=== PATIENT | female | born 1980 | race Caucasian/White ===

== ENCOUNTER 2023-07-16 10:45 | Outpatient (OUT) | payer OTHER, SELFPAY ==
--- NOTE | 2023-07-16 10:48 | US_ITS ---
[address] [address] Patient Name: GAUTAM WATT MRN: [id number] date: 1980 Sex: F Assigned Patient Location: US Current Patient Location: US Accession/Order Number: [id number] Exam Date: 07/16/2023 10:50 Report Date: 07/16/2023 12:17 At the request of: BRIGIDA JIMENEZ Procedure: US pelvis w/ transvaginal EXAMINATION: US pelvis w/ transvaginal HISTORY: Abnormal Uterine Bleeding N93.9, Hormone Imbalance E34.9 , amenorrhea for 6 months COMPARISON: No relevant comparison available. TECHNIQUE: Transabdominal and/or transvaginal sonographic examination was performed as indicated by examination type. FINDINGS: UTERUS: Normal size and appearance. Uterus size: 6.9 x 4.0 x 4.8 cm ENDOMETRIUM: Slightly thickened and contains a few tiny echogenic foci, likely small dystrophic calcifications. Endometrial thickness: 15 mm RIGHT OVARY: Normal size and appearance. Duplex Doppler demonstrates normal waveform and flow; resistive index 0.7. Ovary size: 2.7 x 1.0 x 0.9 LEFT OVARY: Contains several cysts/follicles, largest is 2.3 cm. Duplex Doppler demonstrates normal waveform and flow; resistive index 0.6. Ovary size: 5.0 x 2.2 x 3.2 cm CUL-DE-SAC: Unremarkable. No significant free fluid. BLADDER: Unremarkable. OTHER: None. US/US pelvis w/ transvaginal IMPRESSION: 1. Borderline thickened endometrium containing several calcifications, likely dystrophic calcifications; nonspecific. Appearance suggestive of endometrial hyperplasia. 2. Several cysts/follicles within left ovary; no suspicious findings. Electronically authenticated by: REYES RAMAN Date: 07/16/2023 12:17
[2023-07-16 11:38] LABS: Basophils Absolute Auto 0.1 10^3/uL (0.0-0.1); Basophils Percent Auto 0.7 % (0.2-2.0); Eosinophils Absolute Auto 0.1 10^3/uL (0.0-0.7); Eosinophils Percent Auto 1.9 % (0.9-7.0); Hematocrit 44.4 % (36.0-48.0); Hemoglobin 15.2 g/dL (12.0-16.0); Immature Granulocytes Abs Auto 0.03 10^3/uL (0.00-0.03); Immature Granulocytes Pct Auto 0.4 % (0.0-0.5); Lymphocytes Absolute Auto 2.3 10^3/uL (1.2-3.8); Lymphocytes Percent Auto 31.1 % (20.5-60.0); Mean Corpuscular HGB Conc 34.2 g/dL (29.9-35.2); Mean Corpuscular Hemoglobin 31.5 pg (26.7-34.0); Mean Corpuscular Volume 91.9 fL (81.0-99.0); Mean Platelet Volume 8.3 fL (9.5-13.5); Monocytes Absolute Auto 0.5 10^3/uL (0.3-0.8); Monocytes Percent Auto 6.5 % (1.7-12.0); Neutrophils Absolute Auto 4.4 10^3/uL (1.4-6.5); Neutrophils Percent Auto 59.4 % (43.0-75.0); Platelet Count 284 10^3/uL (150-450); Red Blood Count 4.83 10^6/uL (4.20-5.40); White Blood Count 7.4 10^3/uL (4.0-11.0)
[2023-07-16 11:45] LABS: Estimated Average Glucose 103 mg/dL; Glycohemoglobin A1C 5.2 % (4.5-6.2)
[2023-07-16 12:10] LABS: Alanine Aminotransferase 50 U/L (14-59); Albumin Globulin Ratio 0.9; Albumin Level 3.7 g/dL (3.4-5.0); Alkaline Phosphatase 74 U/L (46-116); Anion Gap 14.3; Aspartate Amino Transferase 16 U/L (15-37); BUN Creatinine Ratio 22.8; Bilirubin Total 0.5 mg/dL (0.2-1.0); Calcium 9.4 mg/dL (8.5-10.1); Carbon Dioxide 26.9 mmol/L (21.0-32.0); Chloride 101 mmol/L (98-107); Estimated GFR (African America >60 (>=60); Estimated GFR (Non-African Ame >60 (>=60); Globulin 3.9 g/dL; Glucose 79 mg/dL (74-106); HCG Quantitative <1 mIU/mL; Potassium 4.2 mmol/L (3.5-5.1); Sodium 138 mmol/L (136-145); Thyroid Stimulating Hormone 1.122 uIU/mL (0.358-3.740); Total Protein 7.6 g/dL (6.4-8.2)
[2023-07-17 09:11] LABS: Luteinizing Hormone(LH) 7.2 mIU/mL (.); Prolactin 10.9 ng/mL (4.8-23.3)
== END 2023-07-16 10:46 | disposition home or self-care (01) ==
LOC: US 10:46
PROVIDERS: PCP Obstetrics & Gynecology; Visit Provider Obstetrics & Gynecology
DX: N95.1 Menopausal and female climacteric states (principal); R23.2 Flushing; E34.9 Endocrine disorder, unspecified; N93.9 Abnormal uterine and vaginal bleeding, unspecified; N83.202 Unspecified ovarian cyst, left side
CPT/HCPCS: 36415; 76830; 76856; 80053; 82627; 83002; 83036; 84146; 84439; 84443; 84702; 85025

== ENCOUNTER 2023-07-18 17:33 | Emergency (ER) | payer OTHER, SELFPAY ==
[2023-07-18 17:37] VITALS: BP 153/100; PULSE 90; RESP 14; TEMP 36.8; O2SAT 99; BMI 29.7
[2023-07-18 17:42] VITALS: BP 150/100
[2023-07-18 17:44] VITALS: O2SAT 99
--- NOTE | 2023-07-18 18:01 | ED.GENADUL1 ---
Documented by User: FRANHCESKA Zelaya 07/18/23 19:06 HPI - General Adult General Chief complaint: Ear Stated complaint: Earache Time Seen by Provider: 07/18/23 17:37 Source: patient Mode of arrival: walk-in History of Present Illness HPI narrative: patient is a 43-year-old female presents to the Emergency Room with concerns of left-sided ear pain. Patient states she has had symptoms on and off for two years. Pain started on Friday, can be sharp ice pick like in front of her left ear. She denies diffiiculty hearing or dizziness denies pain with movement of her ear. Patient states she saw an ENT in the past and was told that she grinds her teeth and did not follow up again. Patient takes Motrin with some relief. She denies any visual disturbance. Patient notes att times the pain will radiate into her maxilla and frontal region. She denies any pain with chewing. Patient currently without any nausea or vomiting. Denies visual disturbance or loss of vision Location: Reports face (left ear) Radiation: Denies non-radiation Severity: mild Quality: Reports aching, sharp, dull and constant; Denies burning Pain Consistency: Reports constant Exacerbating factors: Reports none Associated symptoms: Reports denies other symptoms and headaches; Denies confusion, cough, nausea/vomiting or weakness Treatments prior to arrival: Reports NSAID Related Data Home Medications Medication Instructions Recorded Confirmed bupropion HCl 300 mg 24 hr tablet, 300 mg PO DAILY 07/18/23 07/18/23 extended release metformin 500 mg tablet,extended 500 mg PO BID 07/18/23 07/18/23 release 24 hr metoprolol tartrate 25 mg tablet 25 mg PO BID 07/18/23 07/18/23 Allergies Allergy/AdvReac Type Severity Reaction Status Date / Time No Known Drug Allergies Allergy Verified 07/18/23 17:41 Review of Systems ROS Constitutional Denies: fever or chills Eyes Denies: change in vision or blurry vision Ears, nose, mouth, and throat Reports: ear pain (left); Denies: throat pain, neck pain or nasal congestion Cardiovascular Denies: chest pain or palpitations Respiratory Denies: shortness of breath, cough or wheezing Gastrointestinal Denies: abdominal pain or excessive passing of gas Musculoskeletal Denies: back pain or neck pain Integumentary/Breast Denies: rash, itching or redness Neurological Reports: headache; Denies: numbness in extremities, weakness in extremities, lack of coordination or dizziness Psychiatric Denies: anxiety Allergic/Immunologic Denies: hives or facial swelling Exam Narrative Exam Narrative: Vital signs and nurses notes reviewed. The patient is not hypoxic. General: The patient appears well and in no apparent distress. Patient is resting comfortably on cart. Skin: Warm, dry, no pallor noted. The patient has no evidence of rash, petechiae, or purpura noted. Head: Normocephalic, atraumatic, no temporal arterial tenderness, no tenderness to temporomandibular joint, patient has pain preauricular with a slight Tinel's to the facial nerve. Neck: Supple, trachea mid-line, no tenderness, no lymphadenopathy. No meningeal signs. No nuchal rigidity. Eye: Pupils are equal, round and reactive to light, EOMI Ears, Nose, Mouth, and Throat: Oral mucosa is moist, TMs are clear bilaterally, no hemotympanum noted. no auricle or tragal tenderness. Cardiovascular: Regular Rate and Rhythm Respiratory: Patient is in no distress, no accessory muscle use, lungs are clear to auscultation, no wheezing, rales or rhonchi Back: non-tender, no CVA tenderness Musculoskeletal: normal ROM, no tenderness, no swelling, normal strength 5/5. Normal pulses to radial 2+ bilaterally and 2+ at DP and PT bilaterally and symmetrically. GI: Normal bowel sounds, no tenderness to palpation, no masses appreciated. No rebound, guarding, or rigidity noted. 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 The patient is not ataxic. The patient has normal speech. The patient has normal coordination. . Normal motor and sensory observed. Psychiatric: Cooperative Constitutional Vital Signs, click to edit/add: Last Vital Signs Temp 98.3 F 07/18/23 17:37 Pulse 90 07/18/23 17:37 Resp 14 07/18/23 17:37 BP 150/100 H 07/18/23 17:42 Pulse Ox 99 07/18/23 17:44 O2 Del Method Nasal Cannula 07/18/23 18:01 Course Vital Signs Vital signs: Vital Signs Temperature 98.3 F 07/18/23 17:37 Pulse Rate 90 07/18/23 17:37 Respiratory Rate 14 07/18/23 17:37 Blood Pressure 153/100 H 07/18/23 17:37 Pulse Oximetry 99 07/18/23 17:37 Oxygen Delivery Method Room Air 07/18/23 17:37 Temperature 98.3 F 07/18/23 17:37 Pulse Rate 90 07/18/23 17:37 Respiratory Rate 14 07/18/23 17:37 Blood Pressure 150/100 H 07/18/23 17:42 Pulse Oximetry 99 07/18/23 17:44 Oxygen Delivery Method Nasal Cannula 07/18/23 18:01 Medical Decision Making MDM Narrative Medical decision making narrative: patient with complaint of left ear pain, there is no ear tenderness or dental tenderness on exam. Pain with slight Tinel's to the facial nerve, but history concerning for possible cluster migraines. Patient placed on high flow oxygen 15 L/m. patient was given Toradol 30 mg IV, Solu-Medrol 125 mg IV, reevaluated. She reports no significant change in symptoms pain preauricular still 02/15. Patient states she has dealt with this for many years, we discussed additional medications but she would need to have a ride home. We discussed potential etiologies such as trigeminal neuralgia or cluster migraines and suggests possibly trying treatment for these with her family doctor, and consultation back to ENT specialist if not improving. Patient agreeable with disposition home and will return to the Emergency Room if symptoms worsen or new symptoms develop. do not feel the patient's symptoms warrant any CT imaging at this time. The patient is to followup with primary care physician in next 2-3 days or to return to the emergency department should any of the signs or symptoms worsen or new symptoms develop. Patient had questions answered. The patient agrees with the following Diagnosis and Treatment plan and the patient will be discharged home. Lab Data Labs: Lab Results 07/18/23 Range/Units 18:20 WBC 8.7 (4.0-11.0) 10^3/uL RBC 4.73 (4.20-5.40) 10^6/uL Hgb 14.9 (12.0-16.0) g/dL Hct 43.6 (36.0-48.0) % MCV 92.2 (81.0-99.0) fL MCH 31.5 (26.7-34.0) pg MCHC 34.2 (29.9-35.2) g/dL RDW 12.9 (11.0-15.0) % Plt Count 268 (150-450) 10^3/uL MPV 8.7 L (9.5-13.5) fL Neut % (Auto) 65.9 (43.0-75.0) % Lymph % (Auto) 26.1 (20.5-60.0) % Burnett % (Auto) 5.9 (1.7-12.0) % Eos % (Auto) 1.3 (0.9-7.0) % Baso % (Auto) 0.5 (0.2-2.0) % Neut # (Auto) 5.8 (1.4-6.5) 10^3/uL Lymph # (Auto) 2.3 (1.2-3.8) 10^3/uL Burnett # (Auto) 0.5 (0.3-0.8) 10^3/uL Eos # (Auto) 0.1 (0.0-0.7) 10^3/uL Baso # (Auto) 0.0 (0.0-0.1) 10^3/uL Abs Immat Gran (auto) 0.03 (0.00-0.03) 10^3/uL Imm/Tot Granulo (auto) 0.3 (0.0-0.5) % ESR 15 (<=20) mm/hr Sodium 136 (136-145) mmol/L Potassium 4.3 (3.5-5.1) mmol/L Chloride 103 (98-107) mmol/L Carbon Dioxide 28.4 (21.0-32.0) mmol/L Anion Gap 8.9 BUN 22.0 H (7.0-18.0) mg/dL Creatinine 0.89 (0.55-1.02) mg/dL Est GFR ( Amer) >60 (>=60) Est GFR (Non-Af Amer) >60 (>=60) BUN/Creatinine Ratio 24.7 Glucose 103 (74-106) mg/dL Calcium 9.3 (8.5-10.1) mg/dL Discharge Plan Discharge Chief Complaint: Ear Clinical Impression: Acute facial pain, Otalgia of left ear Patient Disposition: Home, Self-Care Time of Disposition Decision: 19:05 Condition: Good Prescriptions / Home Meds: No Action metformin 500 mg tablet extended release 24 hr 500 mg PO BID bupropion HCl 300 mg tablet extended release 24 hr 300 mg PO DAILY metoprolol tartrate 25 mg tablet 25 mg PO BID Instructions: Trigeminal Neuralgia (ED) Stand Alone Forms: Portal Instructions Referrals: Phil Nino MD [Primary Care Provider] - As soon as possible Discharge Date/Time: 07/18/23 19:40 Documented by User: Delvin Lamb MD 07/21/23 22:34 HPI - General Adult General Chief complaint: Ear Stated complaint: Earache Time Seen by Provider: 07/18/23 17:37 Related Data Home Medications Medication Instructions Recorded Confirmed bupropion HCl 300 mg 24 hr tablet, 300 mg PO DAILY 07/18/23 07/18/23 extended release metformin 500 mg tablet,extended 500 mg PO BID 07/18/23 07/18/23 release 24 hr metoprolol tartrate 25 mg tablet 25 mg PO BID 07/18/23 07/18/23 Allergies Allergy/AdvReac Type Severity Reaction Status Date / Time No Known Drug Allergies Allergy Verified 07/18/23 17:41 Exam Constitutional Vital Signs, click to edit/add: Last Vital Signs Temp 98.3 F 07/18/23 17:37 Pulse 90 07/18/23 17:37 Resp 14 07/18/23 17:37 BP 150/100 H 07/18/23 17:42 Pulse Ox 99 07/18/23 17:44 O2 Del Method Nasal Cannula 07/18/23 18:01 Course Vital Signs Vital signs: Vital Signs Temperature 98.3 F 07/18/23 17:37 Pulse Rate 90 07/18/23 17:37 Respiratory Rate 14 07/18/23 17:37 Blood Pressure 153/100 H 07/18/23 17:37 Pulse Oximetry 99 07/18/23 17:37 Oxygen Delivery Method Room Air 07/18/23 17:37 Temperature 98.3 F 11/10/23 17:37 Pulse Rate 90 07/18/23 17:37 Respiratory Rate 14 07/18/23 17:37 Blood Pressure 150/100 H 07/18/23 17:42 Pulse Oximetry 99 07/18/23 17:44 Oxygen Delivery Method Nasal Cannula 07/18/23 18:01 Medical Decision Making MDM Narrative Medical decision making narrative: patient with complaint of left ear pain, there is no ear tenderness or dental tenderness on exam. Pain with slight Tinel's to the facial nerve, but history concerning for possible cluster migraines. Patient placed on high flow oxygen 15 L/m. patient was given Toradol 30 mg IV, Solu-Medrol 125 mg IV, reevaluated. She reports no significant change in symptoms pain preauricular still 02/15. Patient states she has dealt with this for many years, we discussed additional medications but she would need to have a ride home. We discussed potential etiologies such as trigeminal neuralgia or cluster migraines and suggests possibly trying treatment for these with her family doctor, and consultation back to ENT specialist if not improving. Patient agreeable with disposition home and will return to the Emergency Room if symptoms worsen or new symptoms develop. do not feel the patient's symptoms warrant any CT imaging at this time. The patient is to followup with primary care physician in next 2-3 days or to return to the emergency department should any of the signs or symptoms worsen or new symptoms develop. Patient had questions answered. The patient agrees with the following Diagnosis and Treatment plan and the patient will be discharged home. I, Dr Lamb, have reviewed the above progress note and course of action in the ER; agree with the above. I have gone over history and physical, and discussed disposition and treatment plan with the patient. Lab Data Labs: Lab Results 07/18/23 Range/Units 18:20 WBC 8.7 (4.0-11.0) 10^3/uL RBC 4.73 (4.20-5.40) 10^6/uL Hgb 14.9 (12.0-16.0) g/dL Hct 43.6 (36.0-48.0) % MCV 92.2 (81.0-99.0) fL MCH 31.5 (26.7-34.0) pg MCHC 34.2 (29.9-35.2) g/dL RDW 12.9 (11.0-15.0) % Plt Count 268 (150-450) 10^3/uL MPV 8.7 L (9.5-13.5) fL Neut % (Auto) 65.9 (43.0-75.0) % Lymph % (Auto) 26.1 (20.5-60.0) % Burnett % (Auto) 5.9 (1.7-12.0) % Eos % (Auto) 1.3 (0.9-7.0) % Baso % (Auto) 0.5 (0.2-2.0) % Neut # (Auto) 5.8 (1.4-6.5) 10^3/uL Lymph # (Auto) 2.3 (1.2-3.8) 10^3/uL Burnett # (Auto) 0.5 (0.3-0.8) 10^3/uL Eos # (Auto) 0.1 (0.0-0.7) 10^3/uL Baso # (Auto) 0.0 (0.0-0.1) 10^3/uL Abs Immat Gran (auto) 0.03 (0.00-0.03) 10^3/uL Imm/Tot Granulo (auto) 0.3 (0.0-0.5) % ESR 15 (<=20) mm/hr Sodium 136 (136-145) mmol/L Potassium 4.3 (3.5-5.1) mmol/L Chloride 103 (98-107) mmol/L Carbon Dioxide 28.4 (21.0-32.0) mmol/L Anion Gap 8.9 BUN 22.0 H (7.0-18.0) mg/dL Creatinine 0.89 (0.55-1.02) mg/dL Est GFR ( Amer) >60 (>=60) Est GFR (Non-Af Amer) >60 (>=60) BUN/Creatinine Ratio 24.7 Glucose 103 (74-106) mg/dL Calcium 9.3 (8.5-10.1) mg/dL Discharge Plan Discharge Chief Complaint: Ear Clinical Impression: Acute facial pain, Otalgia of left ear Patient Disposition: Home, Self-Care Time of Disposition Decision: 19:05 Condition: Good Prescriptions / Home Meds: No Action metformin 500 mg tablet extended release 24 hr 500 mg PO BID bupropion HCl 300 mg tablet extended release 24 hr 300 mg PO DAILY metoprolol tartrate 25 mg tablet 25 mg PO BID Instructions: Trigeminal Neuralgia (ED) Stand Alone Forms: Portal Instructions Referrals: Phil Nino MD [Primary Care Provider] - As soon as possible Discharge Date/Time: 07/18/23 19:40
[2023-07-18] MEDS: 0.9 % SODIUM CHLORIDE 1,000 ML 999 ML IV (18:27)
[2023-07-18] MEDS: METHYLPREDNISOLONE SOD SUCC PF 125 MG/2 ML VIAL IVP (18:27)
[2023-07-18] MEDS: KETOROLAC TROMETHAMINE 60 MG/2 ML VIAL IM (18:27)
[2023-07-18 18:32] LABS: Basophils Percent Auto 0.5 % (0.2-2.0); Eosinophils Absolute Auto 0.1 10^3/uL (0.0-0.7); Eosinophils Percent Auto 1.3 % (0.9-7.0); Hematocrit 43.6 % (36.0-48.0); Hemoglobin 14.9 g/dL (12.0-16.0); Immature Granulocytes Abs Auto 0.03 10^3/uL (0.00-0.03); Immature Granulocytes Pct Auto 0.3 % (0.0-0.5); Lymphocytes Absolute Auto 2.3 10^3/uL (1.2-3.8); Lymphocytes Percent Auto 26.1 % (20.5-60.0); Mean Corpuscular HGB Conc 34.2 g/dL (29.9-35.2); Mean Corpuscular Hemoglobin 31.5 pg (26.7-34.0); Mean Corpuscular Volume 92.2 fL (81.0-99.0); Mean Platelet Volume 8.7 fL (9.5-13.5); Monocytes Absolute Auto 0.5 10^3/uL (0.3-0.8); Monocytes Percent Auto 5.9 % (1.7-12.0); Neutrophils Absolute Auto 5.8 10^3/uL (1.4-6.5); Neutrophils Percent Auto 65.9 % (43.0-75.0); Platelet Count 268 10^3/uL (150-450); Red Blood Count 4.73 10^6/uL (4.20-5.40); Red Cell Distribution Width 12.9 % (11.0-15.0); White Blood Count 8.7 10^3/uL (4.0-11.0)
[2023-07-18 18:36] LABS: Anion Gap 8.9; BUN Creatinine Ratio 24.7; Calcium 9.3 mg/dL (8.5-10.1); Carbon Dioxide 28.4 mmol/L (21.0-32.0); Chloride 103 mmol/L (98-107); Estimated GFR (African America >60 (>=60); Estimated GFR (Non-African Ame >60 (>=60); Glucose 103 mg/dL (74-106); Potassium 4.3 mmol/L (3.5-5.1); Sodium 136 mmol/L (136-145)
[2023-07-18 18:37] LABS: Erythrocyte Sedimentation Rate 15 mm/hr (<=20)
== END 2023-07-18 19:40 | disposition home or self-care (01) ==
PROVIDERS: Personal Emergency Response Attendant; Emergency Provider Emergency Medicine; PCP Family Medicine
DX: H92.02 Otalgia, left ear (principal); G50.1 Atypical facial pain; Z79.899 Other long term (current) drug therapy; Z79.84 Long term (current) use of oral hypoglycemic drugs
CPT/HCPCS: 36415; 80048; 85025; 85652; 96372; 96374; 99284; J2930

== ENCOUNTER 2023-08-06 11:34 | Outpatient (REF) | payer OTHER, SELFPAY | END 2023-08-06 11:35 | disposition home or self-care (01) | LOC: LAB 11:34 | PROVIDERS: PCP Family Medicine; Visit Provider Obstetrics & Gynecology | DX: R93.89 Abnormal findings on diagnostic imaging of other specified body structures (principal) | CPT/HCPCS: 88305 ==

== ENCOUNTER 2024-07-26 12:35 | Outpatient (OUT) | payer OTHER, SELFPAY ==
--- NOTE | 2024-07-26 12:43 | US_ITS ---
Patient Name: GAUTAM WATT MR#: [id number] : 1980 Exam Date: 07/26/2024 Ordering Doctor: FRANCHESKA Hayden . RADIOLOGY REPORT PROCEDURE: MM TOMOSYNTHESIS DIAGNOSTIC BI, 07/26/2024, 12:49 US BREAST RT LIMITED, 07/26/2024, 13:10 COMPARISON: None. INDICATIONS: Mass Of Right Breast, Enlarged Lymph Node Calculator Name NCI Breast Cancer Risk Assessment Tool 5 Year Breast Cancer Risk 1.70% Lifetime Breast Cancer Risk 17.30% Personal Breast Cancer No Personal Ovarian Cancer No Treatments None Family Cancers Grandmother-paternal with breast cancer at age ~65; Mother with small cell carcinoma cancer at age 70. LOCATION: [facility] BREAST COMPOSITION: The breasts are almost entirely fatty. FINDINGS: DIAGNOSTIC CATEGORY 1--NEGATIVE. RIGHT BREAST: A skin surface marker localizing the patient's palpable lump is present over the anterior upper-outer quadrant. No underlying mammographic abnormality. Ultrasound evaluation demonstrates normal appearing fibroglandular tissue in the area of concern. LEFT BREAST: No significant suspicious finding. RECOMMENDATIONS: ROUTINE MAMMOGRAM AND CLINICAL EVALUATION IN 12 MONTHS. PLEASE NOTE: A NORMAL MAMMOGRAM DOES NOT EXCLUDE THE POSSIBILITY OF BREAST CANCER. A CLINICALLY SUSPICIOUS PALPABLE LUMP SHOULD BE BIOPSIED. Dictated by: Dejuan Wren M.D. on 07/26/2024 at 15:09 Approved by: Dejuan Wren M.D. on 07/26/2024 at 15:13
--- OUTSIDE RECORDS SUMMARY | 2024-07-26 12:59 | XMS_ITS | CCD ---
Author Organization [facility] Care Team Providers Care Game Room Attendant Name Role Phone Ayanna Weinberg Unavailable CHELSEY, DR PHIL Donald Admitting Unavailable NADERER, DR PHIL Donald Attending Unavailable NADERER, DR PHIL Donald Primary Care Unavailable NADERER, DR PHIL Donald Consulting Unavailable NADERER, DR PHIL Donald Admitting Unavailable NADERER, DR PHIL Donald Attending Unavailable NADERER, DR PHIL Donald Primary Care Unavailable NADERER, DR PHIL Donald Consulting Unavailable NADERER, DR PHIL Donald Admitting Unavailable NADERER, DR PHIL Donald Attending Unavailable NADERER, DR PHIL Donald Primary Care Unavailable NADERER, DR PHIL Donald Primary Care Unavailable REINECK, DR JESUS Perry Admitting Unavailabl e REINECK, DR JESUS Perry Attending Unavailabl e REINECK, DR JESUS Perry Consulting Unavailabl e FALVO, EBEN Consulting Unavailable Lisaerer Phil MENDENHALL Primary Care Provider BRIGIDA JIMENEZ Attending Unavailable BRIGIDA JIMENEZ Attending Unavailable NADERER, PHIL Attending Unavailable NADERER, PHIL Attending Unavailable NADEREHansa, PHIL Attending Unavailable NADERER, PHIL Attending Unavailable MARLINKELLEN Attending Unavailable Medications Current Medications Medication Drug Class(es) Dates Sig (Normalized) Sig (Original) acetaminophen 500 mg oral tablet (6 sources) take 1 tablet by mouth every six hours as needed for pain acetaminophen (Tylenol) 500 MG tablet Take 500 mg by mouth every 6 (six) hours if needed for mild pain. Active [id number] 200 actuat albuterol 0.09 mg/actuat metered dose inhaler (3 sources) beta2-Adrenergic Agonist End: 06-16-2024 take 2 puff(s) by inhalation every four hours for wheezing albuterol HFA 90 mcg/act inhaler Inhale 2 puffs every 4 (four) hours if needed for wheezing. 06/16/2024 Discontinued b complex vitamins capsule (6 sources) take 1 capsule by mouth in the morning b complex vitamins capsule Take 1 capsule by mouth in the morning. Active 24 hr buPROPion hydrochloride 300 mg extended release oral tablet (6 sources) Aminoketone Start: 12-10-2023 End: 12-09-2024 take 1 tablet by mouth every twenty-four hours in the morning buPROPion XL (Wellbutrin XL) 300 MG 24 hr tablet Indications: Major depressive disorder, recurrent episode, mild (HCC) (CMS/HCC) Take 1 tablet (300 mg) by mouth in the morning. 30 tablet 11 12/10/2023 12/09/2024 Active lamoTRIgine 25 mg oral tablet (5 sources) Mood Stabilizer, Anti-epileptic Agent Start: 06-16-2024 take 1 tablet by mouth once daily at bedtime, then take 2 tablets by mouth once daily at bedtime lamoTRIgine (LaMICtal) 25 MG tablet Indications: Major depressive disorder, recurrent, moderate (CMS/HCC) 1 PO QHS x 2 weeks then 2 PO QHS 60 tablet 3 06/16/2024 Active magnesium oxide 400 mg oral tablet (6 sources) take 1 tablet by mouth in the morning magnesium oxide (Mag-Ox) 400 mg tablet Take 400 mg by mouth in the morning. Active 24 hr metFORMIN hydrochloride 500 mg extended release oral tablet (7 sources) Biguanide Start: 01-16-2024 End: 01-15-2025 take 1 tablet by mouth every twenty-four hours in the morning metFORMIN XR (Glucophage-XR) 500 MG 24 hr tablet Indications: Insulin resistance syndrome Take 1 tablet (500 mg) by mouth in the morning and 1 tablet (500 mg) before bedtime. 180 tablet 3 01/16/2024 01/15/2025 Active metFORMIN HCl Ac tive methylPREDNISolone 4 mg oral tablet (1 source) Corticosteroid Start: 06-28-2021 methylPREDNISolone 4 MG as directed Orally Once a day for 6 days Jun, Active metoprolol tartrate 25 mg oral tablet (6 sources) beta-Adrenergic Aura Start: 10-16-2023 End: 10-15-2024 take 1 tablet by mouth in the morning metoprolol tartrate (Lopressor) 25 MG tablet Indications: Tachycardia, unspecified Take 1 tablet (25 mg) by mouth in the morning and 1 tablet (25 mg) before bedtime. 60 tablet 11 10/16/2023 10/15/2024 Active Multiple Vitamin (multivitamin) tablet (6 sources) take 1 tablet by mouth in the morning Multiple Vitamin (multivitamin) tablet Take 1 tablet by mouth in the morning. Active probiotic (1 source) probiotic Active Probiotic Product (PROBIOTIC PO) (6 sources) Probiotic Produc t (PROBIOTIC PO) Take by mouth. Active 0.25 mg, 0.5 mg dose 1.5 ml semaglutide 1.34 mg/ml pen injector (3 sources) Start: 03-17-2024 End: 06-16-2024 semaglutide (Ozempic, 0.25 or 0.5 MG/DOSE,) 2 MG/1.5ML solution pen-injector Indications: Obesity (BMI 30-39.9) , Insulin resistance syndrome 0.25 mg SC weekly x 4 weeks, then 0.5 mg weekly 1 each 3 03/17/2024 06/16/2024 Discontinued Problems Active Problems Problem Classification Problem Date Documented Date Episodic/Chronic Anxiety disorders (8 sources) Generalized anxiety disorder; Translations: [Generalized anxiety disorder] Onset: 08-13-2023 06-16-2024 Chronic Lymphadenitis (2 sources) Lymphadenopathy; Translations: [Enlarged lymph nodes, unspecified] 07-05-2024 Episodic Mood disorders (8 sources) Moderate recurrent major depression; Translations: [Major depressive disorder, recurrent, moderate] Onset: 08-13-2023 06-16-2024 Chronic Nonmalignant breast conditions (2 sources) Lump in right breast; Translations: [Unspecified lump in the right breast, unspecified quadrant] 07-05-2024 Episodic Nonspecific chest pain (4 sources) Chest pain, unspecified; Translations: [CHEST PAIN UNSPECIFIED] Onset: 10-09-2022 Episodic Nutritional deficiencies (7 sources) Vitamin D deficiency, unspecified; Translations: [Vitamin D deficiency] Onset: 11-10-2022 08-13-2023 Chronic Other nutritional; endocrine; and metabolic disorders (1 source) Metabolic syndrome; Translations: [METABOLIC SYNDROME] Onset: 11-10-2022 Chronic Other nutritional; endocrine; and metabolic disorders (8 sources) Body mass index 30+ - obesity; Translations: [Obesity, unspecified] Onset: 02-16-2024 4 Chronic Other nutritional; endocrine; and metabolic disorders (6 sources) Metabolic syndrome X; Translations: [Insulin resistance syndrome] Onset: 08-13-2023 08-13-2023 Chronic Regional enteritis and ulcerative colitis (13 sources) Crohn's disease; Translations: [Crohn's disease, unspecified, without complications] Onset: 03-10-2017 Resolved: 03-10-2023 08-13-2023 Chronic Unclassified (6 sources) Patient on antidepressant monitoring plan Onset: 12-10-2023 12-10-2023 Unclassified (6 sources) Baseline PHQ-9 Onset: 12-10-2023 12-10-2023 Past or Other Problems Problem Classification Problem Date Documented Da te Episodic/Chronic Abdominal pain (1 source) Abdominal pain; Translations: [Unspecified abdominal pain] Episodic Cardiac dysrhythmias (10 sources) Palpitations; Translations: [Sinus tachycardia] Onset: 02-27-2022 Episodic Immunizations and screening for infectious disease (1 source) Contact with and (suspected) exposure to other viral communicable diseases Onset: 06-28-2021 Resolved: 06-28-2021 Episodic Other gastrointestinal disorders (1 source) Diarrhea; Translations: [Diarrhea, unspecified] Episodic Other upper respiratory infections (1 source) Acute laryngitis Onset: 06-28-2021 Resolved: 06-28-2021 Episodic Results Test Name Value Interpretation Reference Range Facility INSULINon 11-06-2022 Insulin 60.6 uIU/mL Critically high 2.6-24.9 [facility] Comment on above: Performed By: #### I NSULIN #### [facility] [address] [place] [address] Dr. Froylan Jaimes CBC AUTO DIFFon 11-05-2022 BASO # 0.0 103/ul Normal 0.0-0.1 [facility] Comment on above: Performed By: #### C BC #### [facility] [address] [place] [address] Dr. Froylan Jaimes Basophils/100 WBC (Bld) 0.5 % Normal 0.2-2.0 [facility] Comment on above: Performed By: #### C BC #### [facility] [address] [place] [address] Dr. Froylan Jaimes EO # 0.1 103/ul Normal 0.0-0.7 [facility] Comment on above: Performed By: #### C BC #### [facility] [address] [place] [address] Dr. Froylan Jaimes Eosinophils/100 WBC (Bld) 1.8 % Normal 0.9-7.0 [facility] Comment on above: Performed By: #### C BC #### [facility] [address] [place] [address] Dr. Froylan Jaimes Erythrocyte distribution width (RBC) [Ratio] 13.0 % Normal 11.0-15.0 [facility] Comment on above: Performed By: #### C BC #### [facility] [address] [place] [address] Dr. Froylan Jaimes Hematocrit (Bld) [Volume fraction] 43.5 % Normal 36.0-48.0 [facility] Comment on above: Performed By: #### C BC #### [facility] [address] [place] [address] Dr. Froylan Jaimes Hemoglobin (Bld) [Mass/Vol] 14.7 g/dL Normal 12.0-16.0 [facility] Comment on above: Performed By: #### C BC #### [facility] [address] [place] [address] Dr. Froylan Jaimes IG # 0.02 10e3/ul Normal 0.00-0.03 [facility] Comment on above: Performed By: #### C BC #### [facility] [address] [place] [address] Dr. Froylan Jaimes IG % 0.3 % Normal 0.0-0.5 [facility] Comment on above: Performed By: #### C BC #### [facility] [address] [place] [address] Dr. Froylan Jaimes LYMPH # 1.4 103/ul Normal 1.2-3.8 [facility] Comment on above: Performed By: #### C BC #### [facility] [address] [place] [address] Dr. Froylan Jaimes Lymphocytes/100 WBC (Bld) 23.4 % Normal 20.5-60.0 [facility] Comment on above: Performed By: #### C BC #### [facility] [address] [place] [address] Dr. rFoylan Jaimes MANUAL DIFF REQ NO Normal [facility] Comment on above: Performed By: #### C BC #### [facility] [address] [place] [address] Dr. Froylan Jaimes MCH (RBC) [Entitic mass] 30.7 pg Normal 26.7-34.0 [facility] Comment on above: Performed By: #### C BC #### [facility] [address] [place] [address] Dr. Froylan Jaimes MCHC (RBC) [Mass/Vol] 33.8 g/dL Normal 29.9-35.2 [facility] Comment on above: Performed By: #### C BC #### [facility] [address] [place] [address] Dr. Froylan Jaimes MCV (RBC) [Entitic vol] 90.8 fL Normal 81.0-99.0 [facility] Comment on above: Performed By: #### C BC #### [facility] [address] [place] [address] Dr. Froylan Jaimes MONO # 0.4 103/ul Normal 0.3-0.8 [facility] Comment on above: Performed By: #### C BC #### [facility] [address] [place] [address] Dr. Froylan Jaimes Monocytes/100 WBC (Bld) 6.4 % Normal 1.7-12.0 [facility] Comment on above: Performed By: #### C BC #### [facility] [address] [place] [address] Dr. Froylan Jaimes NEUT # 4.1 103/ul Normal 1.4-6.5 [facility] Comment on above: Performed By: #### C BC #### [facility] [address] [place] [address] Dr. Froylan Jaimes Neutrophils/100 WBC (Bld) 67.6 % Normal 43.0-75.0 [facility] Comment on above: Performed By: #### C BC #### [facility] [address] [address] [address] Froylan Jaimes Platelet mean volume (Bld) [Entitic vol] 8.2 fL Critically low 9.5-13.5 [facility] Comment on above: Performed By: #### C BC #### [facility] [address] [address] [address] Froylan Jaimes PLT 258 103/ul Normal 150-450 [facility] Comment on above: Performed By: #### C BC #### [facility] [address] [address] [address] Froylan Jaimes RBC 4.79 106/ul Normal 4.20-5.40 [facility] Comment on above: Performed By: #### C BC #### [facility] [address] [place] [address] Dr. Froylan Jaimes WBC 6.1 103/ul Normal 4.0-11.0 [facility] Comment on above: Performed By: #### C BC #### [facility] [address] [place] [address] Dr. Froylan Jaimes GLYCOHEMOGLOBIN A1Con 2022 ADA RECOMMENDATION SEE BELOW Normal [facility] Comment on above: Result Comment: ADA RECOMMENDED LIMIT 4.0 - 6.0 ADA THERAPEUTIC TARGET < 7.0 ACTION SUGGESTED > 7.0 Performed By: #### A 1C #### [facility] [address] [place] [address] Dr. Froylan Jaimes Glucose [Mass/Vol] 111 mg/dL Critically high 74-106 [facility] Comment on above: Performed By: #### A 1C #### [facility] [address] [address] [address] Froylan Jaimes Performed By: #### T SH, BMP, LIPID, LIVER ####[facility] [address] [address]Dr. Froylan Jaimes HbA1c (Bld) [Mass fraction] 5.5 % Normal 4.5-6.2 [facility] Comment on above: Performed By: #### A 1C #### [facility] [address] [place], [place] [address] Dr. Froylan Jaimes LIPID PROFILEon 11-05-2022 CHOL-HDL RATIO NORM SEE BELOW Normal [facility] Comment on above: Result Comment: 3.3 - 4.4 LOW RISK 4.4 - 7.1 AVERAGE RISK 7.1 - 11.0 MODERATE RISK >11.0 HIGH RISK Performed By: #### T SH, BMP, LIPID, LIVER ####[facility] [address] [place], [place] [address]Zv. Froylan Jaimes Cholesterol [Mass/Vol] 223 mg/dL Critically high <=200 [facility] Comment on above: Performed By: #### T SH, BMP, LIPID, LIVER ####[facility] [address] [place], [place] [address]Og. Froylan Jaimes Cholesterol in HDL [Mass/Vol] 36 mg/dL Critically low 40-60 [facility] Comment on above: Performed By: #### T SH, BMP, LIPID, LIVER ####[facility] [address] [id number]. Froylan Jaimes Cholesterol in LDL [Mass/Vol] 115.6 mg/dL Normal [facility] Comment on above: Performed By: #### T SH, BMP, LIPID, LIVER ####[facility] [address] [place] [id number]. Froylan Jaimes Cholesterol.total/C holesterol in HDL [Mass ratio] 6.2 {ratio} Normal [facility] Comment on above: Performed By: #### T SH, BMP, LIPID, LIVER ####[facility] [address] [place] [id number]. Froylan Jaimes HDL NORMAL > or = 60 mg/dl - LO W CARDIOVASCULAR RISK <40 mg/dl - HIGH CARDIOVASCULAR RISK Normal [facility] Comment on above: Performed By: #### T SH, BMP, LIPID, LIVER ####[facility] [address] [id number]. Froylan Jaimes LDL CALC NORMAL SEE BELOW Normal [facility] Comment on above: Result Comment: <100 mg/dl OPTIMAL 100 - 129 mg/dl NEAR OR ABOVE OPTIMAL 130 - 159 mg/dl BORDERLINE HIGH 160 - 189 mg/dl HIGH >190 mg/dl VERY HIGH Performed By: #### T SH, BMP, LIPID, LIVER ####[facility] [address] [id number]. Froylan Jaimes Triglyceride [Mass/Vol] 357 mg/dL Critically high <=150 [facility] Comment on above: Performed By: #### T SH, BMP, LIPID, LIVER ####[facility] [address] [place] [id number]. Froylan Jaimes VLDL CALC 71.4 mg/dL Normal [facility] Comment on above: Performed By: #### T SH, BMP, LIPID, LIVER ####[facility] [address] [place] [address]Dr. Froylan Jaimes LIVER PROFILEon 11-05-2022 Albumin [Mass/Vol] 3.8 g/dL Normal 3.4-5.0 [facility] Comment on above: Performed By: #### T SH, BMP, LIPID, LIVER ####[facility] [address] [address]Dr. Froylan Jaimes Albumin/Globulin [Mass ratio] 1.0 {ratio} Normal [facility] Comment on above: Performed By: #### T SH, BMP, LIPID, LIVER ####[facility] [address] [place] [id number]. Froylan Jaimes ALP [Catalytic activity/Vol] 71 U/L Normal 46-116 [facility] Comment on above: Performed By: #### T SH, BMP, LIPID, LIVER ####[facility] [address] [place] [address]Dr. Froylan Jaimes ALT [Catalytic activity/Vol] 44 U/L Normal 14-59 [facility] Comment on above: Performed By: #### T SH, BMP, LIPID, LIVER ####[facility] [address] [address]Dr. Froylan Jaimes AST [Catalytic activity/Vol] 17 U/L Normal 15-37 [facility] Comment on above: Performed By: #### T SH, BMP, LIPID, LIVER ####[facility] [address] [address]Dr. Froylan Jaimes BILI, CONJUGATED 0.1 mg/dL Normal 0.0-0.2 [facility] Comment on above: Performed By: #### T SH, BMP, LIPID, LIVER ####[facility] [address] [address]Dr. Froylan Jaimes Bilirubin [Mass/Vol] 0.5 mg/dL Normal 0.2-1.0 [facility] Comment on above: Performed By: #### T SH, BMP, LIPID, LIVER ####[facility] [address] [place], [place] [address]Dr. Peggysiobhan Jaimes Globulin (S) [Mass/Vol] 3.7 g/dL Normal [facility] Comment on above: Performed By: #### T SH, BMP, LIPID, LIVER ####[facility] [address] [place], [place] [address]Dr. Froylan Jaimes Protein [Mass/Vol] 7.5 g/dL Normal 6.4-8.2 [facility] Comment on above: Performed By: #### T SH, BMP, LIPID, LIVER ####[facility] [address] [place], [place] [address]Dr. Peggysiobhan Jaimes PROF CHEM 8 (BAS METB)on Anion gap [Moles/Vol] 12.5 mmol/L Normal [facility] Comment on above: Performed By: #### T SH, BMP, LIPID, LIVER ####[facility] [address] [place] [address]Dr. Froylan Jaimes Calcium [Mass/Vol] 9.8 mg/dL Normal 8.5-10.1 [facility] Comment on above: Performed By: #### T SH, BMP, LIPID, LIVER ####[facility] [address] [place] [address]Dr. Froylan Jaimes Chloride [Moles/Vol] 106 mmol/L Normal 98-107 [facility] Comment on above: Performed By: #### T SH, BMP, LIPID, LIVER ####[facility] [address] [place] [id number]. Froylan Jaimes CO2 [Moles/Vol] 26.8 mmol/L Normal 21.0-32.0 [facility] Comment on above: Performed By: #### T SH, BMP, LIPID, LIVER ####[facility] [address] [place] [address]Dr. Froylan Jaimes Creatinine [Mass/Vol] 0.68 mg/dL Normal 0.55-1.02 [facility] Comment on above: Performed By: #### T SH, BMP, LIPID, LIVER ####[facility] [address] [place] [address]Dr. Froylan Jaimes EGFR-AF CYMRAES >60 Normal >=60 [facility] Comment on above: Performed By: #### T SH, BMP, LIPID, LIVER ####[facility] [address] [place], [place] [address]Dr. Froylan Jaimes EGFR-NON AF CYMRAES >60 Normal >=60 [facility] Comment on above: Performed By: #### T SH, BMP, LIPID, LIVER ####[facility] [address] [place], [place] [address]Dr. Froylan Jaimes Potassium [Moles/Vol] 4.3 mmol/L Normal 3.5-5.1 [facility] Comment on above: Performed By: #### T SH, BMP, LIPID, LIVER ####[facility] [address] [address]Dr. Froylan Jaimes Sodium [Moles/Vol] 141 mmol/L Normal 136-145 [facility] Comment on above: Performed By: #### T SH, BMP, LIPID, LIVER ####[facility] [address] [place], [place] [address]Dr. Froylan Jaimes Urea nitrogen [Mass/Vol] 25.0 mg/dL Critically high 7.0-18.0 [facility] Comment on above: Performed By: #### T SH, BMP, LIPID, LIVER ####[facility] [address] [place], [place] [address]Dr. Froylan Jaimes Urea nitrogen/Creatinine [Mass ratio] 36.8 mg/mg Normal [facility] Comment on above: Performed By: #### T SH, BMP, LIPID, LIVER ####[facility] [address] [id number]. Froylan Jaimes TSHon 11-05-2022 TSH 0.521 uIU/mL Normal 0.358-3.740 [facility] Comment on above: Performed By: #### T SH, BMP, LIPID, LIVER ####[facility] [address] [place] [id number] Jaimes VITAMIN D 25 OHon 11-05-2022 VIT D 25-OH 15.7 ng/mL Normal [facility] Comment on above: Performed By: #### V ITAD #### [facility] [address] [place] [address] Dr. Froylan Jaimes VIT D RANGES SEE BELOW Normal [facility] Comment on above: Result Comment: <20 ng/mL Vit D deficient 20 - <30 ng/mL Vit D insufficient 30 - 100 ng/mL Vit D sufficient >100 ng/mL Potential Toxicity Performed By: #### V ITAD #### [facility] [address] [place] [address] Dr. Froylan Jaimes CBC AUTO DIFFon 10-09-2022 BASO # 0.0 103/ul Normal 0.0-0.1 [facility] Comment on above: Performed By: #### C BC #### [facility] [address] [place] [address] Dr. Froylan Jaimes Basophils/100 WBC (Bld) 0.5 % Normal 0.2-2.0 [facility] Comment on above: Performed By: #### C BC #### [facility] [address] [place] [address] Dr. Froylan Jaimes EO # 0.2 103/ul Normal 0.0-0.7 [facility] Comment on above: Performed By: #### C BC #### [facility] [address] [place] [address] Dr. Froylan Jaimes Eosinophils/100 WBC (Bld) 2.6 % Normal 0.9-7.0 [facility] Comment on above: Performed By: #### C BC #### [facility] [address] [place] [address] Dr. Froylan Jaimes Erythrocyte distribution width (RBC) [Ratio] 12.7 % Normal 11.0-15.0 [facility] Comment on above: Performed By: #### C BC #### [facility] [address] [place] [address] Dr. Froylan Jaimes Hematocrit (Bld) [Volume fraction] 47.8 % Normal 36.0-48.0 [facility] Comment on above: Performed By: #### C BC #### [facility] [address] [place] [address] Dr. Froylan Jaimes Hemoglobin (Bld) [Mass/Vol] 15.9 g/dL Normal 12.0-16.0 [facility] Comment on above: Performed By: #### C BC #### [facility] [address] [place] [address] Dr. Froylan Jaimes IG # 0.02 10e3/ul Normal 0.00-0.03 [facility] Comment on above: Performed By: #### C BC #### [facility] [address] [place] [address] Dr. Froylan Jaimes IG % 0.3 % Normal 0.0-0.5 [facility] Comment on above: Performed By: #### C BC #### [facility] [address] [place] [address] Dr. Froylan Jaimes LYMPH # 1.9 103/ul Normal 1.2-3.8 [facility] Comment on above: Performed By: #### C BC #### [facility] [address] [place] [address] Dr. Froylan Jaimes Lymphocytes/100 WBC (Bld) 29.2 % Normal 20.5-60.0 [facility] Comment on above: Performed By: #### C BC #### [facility] [address] [place] [address] Dr. Froylan Jaimes MANUAL DIFF REQ NO Normal [facility] Comment on above: Performed By: #### C BC #### [facility] [address] [address] [address] Froylan Jaimes MCH (RBC) [Entitic mass] 30.6 pg Normal 26.7-34.0 [facility] Comment on above: Performed By: #### C BC #### [facility] [address] [address] [address] Froylan Jaimes MCHC (RBC) [Mass/Vol] 33.3 g/dL Normal 29.9-35.2 [facility] Comment on above: Performed By: #### C BC #### [facility] [address] [place] [address] Dr. Froylan Jaimes MCV (RBC) [Entitic vol] 91.9 fL Normal 81.0-99.0 [facility] Comment on above: Performed By: #### C BC #### [facility] [address] [place] [address] Dr. Froylan Jaimes MONO # 0.3 103/ul Normal 0.3-0.8 [facility] Comment on above: Performed By: #### C BC #### [facility] [address] [place] [address] Dr. Froylan Jaimes Monocytes/100 WBC (Bld) 4.4 % Normal 1.7-12.0 [facility] Comment on above: Performed By: #### C BC #### [facility] [address] [place] [address] Dr. Froylan Jaimes NEUT # 4.2 103/ul Normal 1.4-6.5 [facility] Comment on above: Performed By: #### C BC #### [facility] [address] [place] [address] Dr. Froylan Jaimes Neutrophils/100 WBC (Bld) 63.0 % Normal 43.0-75.0 [facility] Comment on above: Performed By: #### C BC #### [facility] [address] [place] [address] Dr. Froylan Jaimes Platelet mean volume (Bld) [Entitic vol] 8.7 fL Critically low 9.5-13.5 [facility] Comment on above: Performed By: #### C BC #### [facility] [address] [place] [address] Dr. Froylan Jaimes PLT 306 103/ul Normal 150-450 [facility] Comment on above: Performed By: #### C BC #### [facility] [address] [place] [address] Dr. Froylan Jaimes RBC 5.20 106/ul Normal 4.20-5.40 [facility] Comment on above: Performed By: #### C BC #### [facility] [address] [place] [address] Dr. Froylan Jaimes WBC 6.6 103/ul Normal 4.0-11.0 [facility] Comment on above: Performed By: #### C BC #### [facility] [address] [place] [address] Dr. Froylan Jaimes D-DIMERon 10-09-2022 D-DIMER <0.19 Normal <=0.59 [facility] Comment on above: Performed By: #### D DIM #### [facility] [address] [place] [address] Dr. Frolyan Jaimes D-DIMER COMMENTS SEE BELOW Normal [facility] Comment on above: Result Comment: Incr eases in D-Dimer concentration observed with thromboembolic events can be variable due to localization, size, and age of the thrombus. Therefore, a thromboembolic event cannot be diagnosed with certainty on the basis of the reference range. D-Dimers may also be elevated for a variety of disorders including: advanced age, , coronary disease, cancer, liver disease, infection, inflammation, hematoma, DIC, trauma, post-surgery, diabetes, thrombolytic or anticoagulant therapy, stress, and generalized hospitalization. Performed By: #### D DIM #### [facility] [address] [place] [address] Dr. Froylan Jaimes PROF CHEM 8 (BAS METB)on Anion gap [Moles/Vol] 16.3 mmol/L Normal [facility] Comment on above: Performed By: #### B MP, HSTROPN #### [facility] [address] [address] [address] Froylan Jaimes Calcium [Mass/Vol] 9.6 mg/dL Normal 8.5-10.1 [facility] Comment on above: Performed By: #### B LEON, HSTROPN #### [facility] [address] [place] [address] Dr. Froylan Jaimes Chloride [Moles/Vol] 114 mmol/L Critically high 98-107 [facility] Comment on above: Performed By: #### B LEON, HSTROPN #### [facility] [address] [place] [address] Dr. Froylan Jaimes CO2 [Moles/Vol] 27.1 mmol/L Normal 21.0-32.0 [facility] Comment on above: Performed By: #### B LEON, HSTROPN #### [facility] [address] [place] [address] Dr. Froylan Jaimes Creatinine [Mass/Vol] 0.70 mg/dL Normal 0.55-1.02 [facility] Comment on above: Performed By: #### B LEON, HSTROPN #### [facility] [address] [place] [address] Dr. Froylan Jaimes EGFR-AF CYMRAES >60 Normal >=60 [facility] Comment on above: Performed By: #### B LEON, HSTROPN #### [facility] [address] [place] [address] Dr. Froylan Jaimes EGFR-NON AF CYMRAES >60 Normal >=60 [facility] Comment on above: Performed By: #### B LEON, HSTROPN #### [facility] [address] [place] [address] Dr. Froylan Jaimes Glucose [Mass/Vol] 116 mg/dL Critically high 74-106 [facility] Comment on above: Performed By: #### B LEON, HSTROPN #### [facility] [address] [place] [address] Dr. Froylan Jaimes Potassium [Moles/Vol] 4.4 mmol/L Normal 3.5-5.1 [facility] Comment on above: Performed By: #### B LEON, HSTROPN #### [facility] [address] [address] [address] Froylan Jaimes Sodium [Moles/Vol] 153 mmol/L Critically high 136-145 [facility] Comment on above: Performed By: #### B MP, HSTROPN #### [facility] [address] [place] [address] Dr. Froylan Jaimes Urea nitrogen [Mass/Vol] 16.0 mg/dL Normal 7.0-18.0 [facility] Comment on above: Performed By: #### B MP, HSTROPN #### [facility] [address] [place] [address] Dr. Froylan Jaimes Urea nitrogen/Creatinine [Mass ratio] 22.9 mg/mg Normal [facility] Comment on above: Performed By: #### B MP, HSTROPN #### [facility] [address] [place] [address] Dr. Froylan Jaimes TROPONIN, HIGH SENSITIVITYon 10-09-2022 HSTROP 4.5 pg/mL Normal 4.0-51.3 [facility] Comment on above: Result Comment: CUT- OFF POINTS HAVE BEEN ESTABLISHED BASED ON THE FOURTH UNIVERSAL DEFINITIONS OF MYOCARDIAL INFARCTION. THE UPPER REFERENCE LIMIT (URL) OF TROPONIN, DEFINED THE 99TH PERCENTILE OF cTnI DISTRIBUTION IN A REFERENCE POPULATION, HAS BEEN CONFIRMED THE DECISION THRESHOLD FOR MD DIAGNOSIS. Performed By: #### B LEON, HSTROPN #### [facility] [address] [place] [address] Dr. Froylan Jaimes TSHon 10-09-2022 TSH 1.395 uIU/mL Normal 0.358-3.[address] [facility] Comment on above: Performed By: #### T SH #### [facility] [address] [place] [address] Dr. Froylan Jaimes XR CHEST 1 Von 10-09-2022 XR CHEST 1 V EXAM: XR CHEST 1 V HISTORY: CHEST PAIN, UNSPECIFIED COMPARISON: None. TECHNIQUE: AP portable upright view of the chest. FINDINGS: Lungs are clear of focal consolidation. No pleural effusion or pneumothorax. Normal cardiomediastinal silhouette. No pulmonary vascular congestion. No acute osseous or soft tissue abnormalities. IMPRESSION: No acute cardiopulmonary process. Electronically authenticated by: EBEN HERNANDEZ Date: 2022-10-09 12:51 Normal [facility] COVID Quick Testingon 2020 Result Negative [facility] Other Vital Signs Date Time Vital Sign Value Performing Clinician Facility 07-05-2024 11:49-0400 Body mass index (BMI) [Ratio] 31.17 kg/m2 Kellen PRITCHARD Work Phone: [facility] 07-05-2024 11:49-0400 Body weight 90.27 kg Kellen PRITCHARD Work Phone: [facility] 07-05-2024 11:49-0400 Diastolic blood pressure 70 mm[Hg] Kellen PRITCHARD Work Phone: [facility] 07-05-2024 11:49-0400 Systolic blood pressure 120 mm[Hg] Kellen PRITCHARD Work Phone: [facility] 06-16-2024 13:17-0400 Body height 170.2 cm Phil Barbosa MD Work Phone: [facility] 06-16-2024 13:17-0400 Body mass index (BMI) [Ratio] 31.48 kg/m2 Phil Barbosa MD Work Phone: [facility] 06-16-2024 13:17-0400 Body temperature 96.6 [degF] Phil Barbosa MD Work Phone: [facility] 06-16-2024 13:17-0400 Body weight 91.17 kg Phil Barbosa MD Work Phone: [facility] 06-16-2024 13:17-0400 Diastolic blood pressure 68 mm[Hg] Phil Barbosa MD Work Phone: [facility] 06-16-2024 13:17-0400 Heart rate 82 /min Phil Barbosa MD Work Phone: [facility] 06-16-2024 13:17-0400 Respiratory rate 20 /min Phil Barbosa MD Work Phone: [facility] 06-16-2024 13:17-0400 SaO2% (BldA) [Mass fraction] 98 % Phil Barbosa MD Work Phone: [facility] 06-16-2024 13:17-0400 Systolic blood pressure 136 mm[Hg] Phil Barbosa MD Work Phone: [facility] 06-28-2021 13:15-0400 Body height 167.64 cm Ayanna Weinberg Other [facility] Other 06-28-2021 13:15-0400 Body mass index (BMI) [Ratio] 34.7 kg/m2 Ayanna Weinberg Other [facility] Other 06-28-2021 13:15-0400 Body temperature 98.3 [degF] Ayanna Weinberg Other [facility] Other 06-28-2021 13:15-0400 Body weight 97.52 kg Ayanna Weinberg Other [facility] Other 06-28-2021 13:15-0400 Respiratory rate 18 /min Ayanna Weinberg Other [facility] Other 06-28-2021 13:15-0400 SaO2% (BldA) [Mass fraction] 98 % Ayanna Weinberg Other [facility] Other Encounters Encounter Date Encounter Type Care Provider Facility Start: 07-05-2024 End: 07-05-2024 Celine PRITCHARD Work Phone: [facility] Start: 07-05-2024 End: 07-05-2024 Celine PRITCHARD Work Phone: [facility] Start: 07-05-2024 End: 07-05-2024 Office outpatient visit 15 minutes Kellen PRITCHARD Work Phone: [facility] Comment on above: Mass of right breast , unspecified quadrant; Enlarged lymph nodes, unspecified Start: 07-05-2024 End: 07-05-2024 ambulatory KELLEN ISAAC Not Available Start: 06-16-2024 End: 06-16-2024 Bamboo flowsheet Phil Barbosa MD Work Phone: [facility] Start: 06-16-2024 End: 06-16-2024 Bamboo flowsheet Phil Barbosa MD Work Phone: [facility] Start: 06-16-2024 End: 06-16-2024 Office outpatient visit 25 minutes Phil Barbosa MD Work Phone: [facility] Comment on above: Major depressive dis order, recurrent, moderate (CMS/HCC) (Primary Dx); Generalized anxiety disorder (CMS/HCC); Obesity (BMI 30-39.9) Start: 06-16-2024 End: 06-16-2024 ambulatory PHIL BARBOSA Not Available Start: 03-17-2024 End: 03-17-2024 ambulatory PHIL BARBOSA Not Available Start: 02-16-2024 Patient encounter procedure Phil Barbosa MD Work Phone: [facility] Start: 02-16-2024 End: 02-16-2024 ambulatory PHIL BARBOSA Not Available Start: 08-13-2023 End: 08-13-2023 ambulatory PHLI BARBOSA Not Available Start: 08-06-2023 End: 08-06-2023 ambulatory BRIGIDA BARBARA Not Available Start: 07-22-2023 End: 07-22-2023 ambulatory BRIGIDA BARBARA Not Available Start: 11-10-2022 Encounter for genera l adult medical examination without abnormal findings DR PHIL BARBOSA [facility] Start: 11-05-2022 End: 11-06-[address] PHIL BARBOSA Facility: Start: 11-05-2022 End: 11-06-2022 Encounter for general adult medical examination without abnormal findings DR PHIL BARBOSA Facility:[facility] Start: 10-09-2022 End: 10-09-[address] PHIL BARBOSA Facility:[facility] Start: 02-27-2022 End: 02-28-[address] PHIL BARBOSA Facility:[facility] Start: 02-25-[address] PHIL BARBOSA Facil ity:[facility] Start: 06-28-2021 End: 06-28-2021 ambulatory Ayanna Weinberg Other [facility] Other Start: 06-28-2021 Office outpatient vi sit 15 minutes Ayanna Weinberg [facility] Plan of Treatment Date Care Activity Detail Author Start: 07-19-2024 End: 07-19-2024 Patient encounter procedure 07/19/2024 1:00 PM EST [facility] [address] [place] [id number] Phil Barbosa MD [address] [place] [id number] [facility] Start: 07-05-2024 End: 09-04-2025 MG Breast - bilateral Diagnostic Bilateral diagnostic mammogram Imaging Routine Mass of right breast, unspecified quadrant Enlarged lymph nodes, unspecified Expected: 07/05/2024 (Approximate), Expires: 09/04/2025 [facility] Work Phone: Comment on above: Expected: 07/05/2024 (Approximate), Expires: 09/04/2025 Start: 07-05-2024 End: 07-05-2024 Patient encounter procedure 07/05/2024 11:10 AM EDT Office Visit [facility] [address] [place] [address] Kellen Isaac PA [address] [place], [place] [id number] Arrived [facility] Comment on above: Arrived Start: 06-16-2024 End: 06-16-2024 Patient encounter procedure 06/16/2024 1:15 PM EDT Office Visit [facility] [address] [place] [id number] Phil Barbosa MD [address] [place] [address] Arrived [facility] Comment on above: Arrived Start: 05-09-2024 Influenza vaccination Influenza Vacc ine (#1) [facility] Start: 2021 Screening for malign ant neoplasm of breast Mammogram [facility] Start: 2011 Screening for malign ant neoplasm of cervix [facility] Start: 2002 Screening for malign ant neoplasm of cervix Pap Smear [facility] Immunizations Immunization Date Immunization Notes Care Provider Fa cili 04-05-2019 tetanus toxoid, reduced diphtheria toxoid, and acellular pertussis vaccine, adsorbed Ayanna Weinberg Other [facility] Other Payers Date Payer Category Payer Private Health Insurance JAMAL Martell [id number] 2022 Unknown DALJIT LEIGH [id number] 2022-Present [phone] [id number] RUBINA MERCHANT [id number] 1981 Unknown [id number] 1981 Unknown [id number] 1981 Unknown [id number] .593 1981 Unknown [id number] .593 1981 Unknown [id number] .1259 1981 Unknown [id number] [id number] .1259 1981 Unknown [id number] .1259 1981 Unknown [id number] .1259 1981 Unknown [id number] [id number] .1259 1981 Unknown [id number] .1259 1981 Unknown [id number] .1259 1959 Private Health Insurance [id number] 1959 Unknown [id number] Private Health Insurance [id number] Social History Date Type Detail Facility Unknown if ever smoked [facility] Other Start: 08-12-2023 End: 06-16-2024 Sex Assigned At [facility] Start: 03-10-2023 Tobacco smoking stat [facility] Ex-smoker [facility] End: 10-16-2004 History of tobacco use Current smoker [facility] End: 10-16-2004 History of tobacco use Cigarette Smoker [facility] Start: 03-10-2023 Tobacco use and exposure Smokeless tobacco non-user [facility] Start: 06-16-2024 End: 07-05-2024 Alcoholic beverage intake Ex-drinker (finding) [facility] Start: 08-12-2023 End: 06-16-2024 History of Social function [facility] Within the last year , have you been afraid of your partner or ex-partner? No [facility] Are you now , , , , never or living with a partner? [facility] How often to you hav e a drink containing alcohol? Monthly or less [facility] How many standard drinks containing alcohol do you have on a typical day? 1 or 2 [facility] How often do you hav e 6 or more drinks on 1 occasion? Never [facility] How hard is it for y ou to pay for the very basics like food, housing, medical care, and heating Not hard at all [facility] Do you feel stress - tense, restless, nervous, or anxious, or unable to sleep at night because your mind is troubled all the time - these days [OSQ] To some extent [facility] (I/We) worried wheth er (my/our) food would run out before (I/we) got money to buy more. Never true [facility] Start: 1980 Sex assigned at Not on file [facility] Start: 03-10-2023 Gender identity Identifies as female gender (finding) [facility] Goals Date Patient Goal Desired Activity /State Personal health goal History of Present illness Narrative 07-05-2024 FRANCHESKA Herrera - 07/05/2024 11:10 AM EDT Note Date & Type Note Facility 07-05-2024 History of Presen t illness Narrative Reason for Appointment: Patient ID: Chalino Houston is a 44 y.o. female who presents for Breast Mass (Pt present today for a right side breast lump) Patient presents today for Right side breast lump MEDICATIONS Current Outpatient Medications Medication Instructions acetaminophen (TYLENOL) 500 mg, Oral, Every 6 hours PRN b complex vitamins capsule 1 capsule, Oral, Daily buPROPion XL (WELLBUTRIN XL) 300 mg, Oral, Every morning lamoTRIgine (LaMICtal) 25 MG tablet 1 PO QHS x 2 weeks then 2 PO QHS magnesium oxide (MAG-OX) 400 mg, Oral, Daily metFORMIN XR (GLUCOPHAGE-XR) 500 mg, Oral, 2 times daily metoprolol tartrate (LOPRESSOR) 25 mg, Oral, 2 times daily Multiple Vitamin (multivitamin) tablet 1 tablet, Oral, Daily Probiotic Product (PROBIOTIC PO) Oral ALLERGIES No Known Allergies PROBLEMS Active Ambulatory Problems Diagnosis Date Noted Generalized anxiety disorder ([facility]) 08/13/2023 Insulin resistance syndrome 08/13/2023 Major depressive disorder, recurrent, moderate ([facility]/HCC) 08/13/2023 Sinus tachycardia 08/13/2023 Mild vitamin D deficiency 08/13/2023 Crohn's disease ([facility]) 08/13/2023 Annual physical exam 02/16/2024 Obesity (BMI 30-39.9) 02/16/2024 Resolved Ambulatory Problems Diagnosis Date Noted Crohn disease ([facility]) 03/10/2017 Past Medical History: Diagnosis Date At standard risk for fall 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 HERMAN (generalized anxiety disorder) ([facility]) IBS (irritable bowel syndrome) 2014 Recurrent major depressive episodes, mild (HCC) ([facility]) Vitamin D deficiency HISTORY PAST MEDICAL HISTORY SOCIAL HISTORY Past Medical History: Diagnosis Date At standard risk for fall 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 Crohn disease ([facility]) 03/10/2017 HERMAN (generalized anxiety disorder) ([facility]) IBS (irritable bowel syndrome) 2014 Insulin resistance syndrome Recurrent major depressive episodes, mild (HCC) ([facility]) Sinus tachycardia Vitamin D deficiency Social History Tobacco Use Smoking status: Former Current packs/day: 0.00 Types: Cigarettes Quit date: 10/16/2004 Years since quittin.7 Smokeless tobacco: Never Substance Use Topics Alcohol use: Not Currently Drug use: Not Currently Types: Marijuana Comment: CBD FAMILY HISTORY Family History Problem Relation Name Age of Onset Diabetes Mother Rakel Avalos Colon polyps Mother Rakel Avalos Heart failure Father Leonard Avalos No Known Problems Sister 1 Cancer Maternal Grandfather Breast cancer Paternal Grandmother Other (diverticular disease) Paternal Grandmother Other (Colitis) Other Migrated family hx Colon cancer Other Migrated family hx Celiac disease Other Migrated family hx Crohn's disease Other Migrated family hx Liver disease Other Migrated family hx SURGICAL HISTORY Past Surgical History: Procedure Laterality Date BREAST BIOPSY BREAST SURGERY 2004 breast infection COLONOSCOPY W/ BIOPSIES 2013 Disease: irritable bowel syndrome TUBAL LIGATION 02/18/2018 laparoscopic WISDOM TOOTH EXTRACTION REVIEW OF SYSTEMS Review of Systems: Review of Systems Constitutional: Negative. HENT: Negative. Eyes: Negative. Respiratory: Negative. Cardiovascular: Negative. Gastrointestinal: Negative. Genitourinary: Negative. Musculoskeletal: Negative. Skin: Negative. Neurological: Negative. All other systems reviewed and are negative. Hematological: Negative. Endocrine: Negative. Allergic/Immunologic: Negative. OBJECTIVE Objective: Physical Exam Constitutional: Appearance: Normal appearance. She is normal weight. Genitourinary: Genitourinary Comments: Fibrocyctic changes, no acute mass palpated Breasts: Breasts are soft. Right: Normal. Left: Normal. HENT: Head: Normocephalic. Cardiovascular: Rate and Rhythm: Normal rate. Pulses: Normal pulses. Pulmonary: Effort: Pulmonary effort is normal. Breath sounds: Normal breath sounds. Abdominal: Palpations: Abdomen is soft. Musculoskeletal: General: Normal range of motion. Neurological: General: No focal deficit present. Mental Status: She is alert and oriented to person, place, and time. Psychiatric: Mood and Affect: Mood normal. Behavior: Behavior normal. Thought Content: Thought content normal. Judgment: Judgment normal. Vitals and nursing note reviewed. Vitals: Estimated body mass index is 31.48 kg/m as calculated from the following: Height as of 06/16/24: 5' 7 . Weight as of 06/16/24: 201 lb. BP: No LMP recorded. ASSESSMENT & PLAN ICD-10-CM 1. Mass of right breast, unspecified quadrant N63.10 Pt present for a right side breast lump at the 11 o clcok position of the right breast. Fibrocystic changes noted, we will send order for diagnositc jyoti as she has never had mammogram Documented by Temi Avalos MA on behalf of: FRANCHESKA Herrera documented in this encounter [facility] History of Present illness Narrative 06-16-2024 Phil Barbosa MD - 06/16/2024 1:36 PM Elana Barbosa MD - 06/16/2024 1:35 PM Elana Barbosa MD - 06/16/2024 1:35 PM Elana Barbosa MD - 06/16/2024 1:15 PM EDT Note Date & Type Note Facility 06-16-2024 History of Presen t illness Narrative Associated Problem(s): Obesity (BMI 30-39.9) Discussed proper diet and regular aerobic exercise. Recommend Weight Watchers and need to limit calories and smaller portions. Need to increase activity and regular aerobic exercise several days a week for 30 minutes at a time. Associated Problem(s): Major depressive disorder, recurrent, moderate (CMS/HCC) Symptoms worse and add lamictal in addition to wellbutrin. Warned will take 2-3 weeks to notice improvement in mood. Associated Problem(s): Generalized anxiety disorder (CMS/HCC) Symptoms worse and add lamictal in addition to wellbutrin. Warned will take 2-3 weeks to notice improvement in mood. Images from the original note were not included. Subjective Patient ID: Chalino Houston is a 43 y.o. female who presents for Migraine and Follow-up (3m/Does not feel like wellbutrin is working). Follow up depression, anxiety, and weight. Insurance did not cover ozempic. Weight unchanged. Tries to stay active and walk several days a week. Tries to watch diet and eat healthy. Increased fruits and vegetables. Smaller portions and limits snacking. Tries to limit total daily calories. Mood worse. Worsening depression and down, sad, and no motivation. Not want to do things or be around others. Doesn't feel happy. No major stressors or changes but just doesn't feel well. Increased anxiety. Nervous and worry all the time. Stressed out and overwhelmed. Thought racing and hard to clear mind. [place], irritable and snapping at others. Easily upset and overreact. Taking wellbutrin but no longer helping. Review of Systems Respiratory: Negative for cough, shortness of breath and wheezing. Cardiovascular: Negative for chest pain and palpitations. Gastrointestinal: Negative for abdominal pain, diarrhea, nausea and vomiting. Genitourinary: Negative for dysuria. Objective Physical Exam Constitutional: General: She is not in acute distress. Appearance: Normal appearance. HENT: Head: Normocephalic. Right Ear: Tympanic membrane normal. Left Ear: Tympanic membrane normal. Eyes: Extraocular Movements: Extraocular movements intact. Pupils: Pupils are equal, round, and reactive to light. Cardiovascular: Rate and Rhythm: Normal rate and regular rhythm. Heart sounds: No murmur heard. No friction rub. No gallop. Pulmonary: Effort: Pulmonary effort is normal. Breath sounds: Normal breath sounds. No wheezing, rhonchi or rales. Abdominal: General: Bowel sounds are normal. There is no distension. Palpations: Abdomen is soft. Tenderness: There is no abdominal tenderness. There is no guarding or rebound. Musculoskeletal: Cervical back: Neck supple. Right lower leg: No edema. Left lower leg: No edema. Neurological: Mental Status: She is alert. Assessment/Plan Problem List Items Addressed This Visit Generalized anxiety disorder (CMS/HCC) Symptoms worse and add lamictal in addition to wellbutrin. Warned will take 2-3 weeks to notice improvement in mood. Major depressive disorder, recurrent, moderate (CMS/HCC) - Primary Symptoms worse and add lamictal in addition to wellbutrin. Warned will take 2-3 weeks to notice improvement in mood. Relevant Medications lamoTRIgine (LaMICtal) 25 MG tablet Obesity (BMI 30-39.9) Discussed proper diet and regular aerobic exercise. Recommend Weight Watchers and need to limit calories and smaller portions. Need to increase activity and regular aerobic exercise several days a week for 30 minutes at a time. documented in this encounter [facility] Evaluation note 06-28-2021 Note Date & Type Note Facility 06-28-2021 Evaluation note Encounter Date Diagnosis Assessment Notes Jun, Contact with and (suspected) exposure to other viral communicable diseases (ICD-10 - Z20.828) Jun, Laryngitis (ICD-10 - J04.0) Symptoms of laryngitis is caused by viruses. Salt water gargles may help with discomfort. Take medications as directed. Cool mist humidifier, steaming up bathroom with shower may help with symptom relief. Follow up with primary care provider if no improvement of symptoms Jun, Other Additional time spent conducting pre-visit phone call, screening for symptoms, instructions on social distancing, application and removal of PPE, and cleaning of examination room, equipment and supplies was preformed. Patient education given for testing methodology and results. Patient care instructions given in writting by [facility] document. Reading Room Other Evaluation note Note Date & Type Note Facility Evaluation note Diagnosis Major depressive disorder, recurrent, moderate (CMS/HCC)- Primary Major depressive disorder, recurrent episode, moderate Generalized anxiety disorder (CMS/HCC) Generalized anxiety disorder Obesity (BMI 30-39.9) documented in this encounter [facility] Evaluation note Note Date & Type Note Facility Evaluation note Diagnosis Major depressive disorder, recurrent episode, mild (HCC) (CMS/HCC)- Primary Major depressive disorder, recurrent episode, mild Generalized anxiety disorder (CMS/HCC) Generalized anxiety disorder Sinus tachycardia Other specified cardiac dysrhythmias Annual physical exam- Primary Routine general medical examination at a health care facility Breast cancer screening by mammogram Major depressive disorder, recurrent episode, mild (HCC) (CMS/HCC) Major depressive disorder, recurrent episode, mild Crohn's disease without complication, unspecified gastrointestinal tract location (CMS/HCC) Obesity (BMI 30-39.9) Major depressive disorder, recurrent episode, mild (HCC) (CMS/HCC)- Primary Major depressive disorder, recurrent episode, mild Generalized anxiety disorder (CMS/HCC) Generalized anxiety disorder Obesity (BMI 30-39.9) Insulin resistance syndrome Major depressive disorder, recurrent, moderate (CMS/HCC)- Primary Major depressive disorder, recurrent episode, moderate Generalized anxiety disorder (CMS/HCC) Generalized anxiety disorder Obesity (BMI 30-39.9) Mass of right breast, unspecified quadrant Enlarged lymph nodes, unspecified documented in this encounter [facility] History general Narrative - Reported Note Date & Type Note Facility History general Narrative - Reported Type Medical History IBS (irritable bowel syndrome) Surgical History breast biopsy Surgical History colonoscopy Hospitalization History eptopic Reading Room Other Summary Purpose Family History No Family History Records FoundNo Family History Records Found Advance Directives No Advanced Directives Records FoundNo Advanced Directives Records Found Additional Source Comments REASON FOR VISIT (unrecogniz ed section and content) Reason Comments Migraine Follow-up 3mDoes not feel like wellbutrin is working Reason Comments Breast Mass Pt present today for a right side breast lump INFORMATION SOURCE (unrecogn ized section and content) DATE CREATED AUTHOR 11/12/2022 [facility] DATE CREATED AUTHOR AUTHOR'S ORGANIZ ATION 07/06/2024 [facility] Care Teams (unrecognized sec tion and content) Game Room Attendant Relationship Specialty Start Date End Date Phil Barbosa MD [address] [place] [id number] PCP - General Family Medicine 02/16/24 Game Room Attendant Relationship Specialty Start Date End Date Phil Barbosa MD [address] [place] [phone] PCP - General Family Medicine 02/16/24 Game Room Attendant Relationship Specialty Start Date End Date Phil Barbosa MD [address] [place] [phone] PCP - General Family Medicine 02/16/24 Game Room Attendant Relationship Specialty Start Date End Date Phil Barbosa MD [address] [place] [phone] PCP - General Family Medicine 02/16/24 FOR RECORDS PERTAINING TO PATIENTS WHO ARE OR HAVE BEEN ENROLLED IN A CHEMICAL DEPENDENCY/SUBSTANCEABUSE PROGRAM, SOME INFORMATION MAY BE OMITTED. This clinical summary was aggregated from multiple sources. Caution should be exercised in using it in the provision of clinical care. This summary normalizes information from multiple sources, and as a consequence, information in this document may materially change the coding, format and clinical context of patient data. In addition, data may be omitted in some cases. CLINICAL DECISIONS SHOULD BE BASED ON THE PRIMARY CLINICAL RECORDS. [facility]. provides no warranty or guarantee of the accuracy or completeness of information in this document.
== END 2024-07-26 12:36 | disposition home or self-care (01) ==
LOC: MAMMO 12:36
PROVIDERS: PCP Family Medicine; Visit Provider Physician Assistant
DX: N63.10 Unspecified lump in the right breast, unspecified quadrant (principal); R59.9 Enlarged lymph nodes, unspecified; Z80.3 Family history of malignant neoplasm of breast; Z80.8 Family history of malignant neoplasm of other organs or systems
CPT/HCPCS: 76642; 77066; G0279